=== PATIENT | female | born 1980 | race Caucasian/White ===

== ENCOUNTER 2017-01-21 12:45 | Emergency (ER) | payer SELFPAY ==
[~2017-01-21] VITALS: Ht 177.8 cm; Wt 83.9 kg
--- NOTE | 2017-01-21 12:45 | NUR ---
Patient was BIBA at this time.
[2017-01-21 12:54] VITALS: BP 133/93
--- NOTE | 2017-01-21 14:43 | NUR ---
Pt to be put in a w/c and placed in w/c by EMS.
--- NOTE | 2017-01-21 15:17 | NUR ---
Patient taken to XRAY via wheelchair per tech.
--- NOTE | 2017-01-21 15:22 | NUR ---
Patient back from XRAY via wheelchair per tech--to OF.
--- NOTE | 2017-01-21 15:27 | NUR ---
LAB drawing blood.
[2017-01-21 15:41] LABS: BASOPHILS # (AUTO) 0.4 K/uL (0.00-0.22); BASOPHILS % (AUTO) 4.9 % (0.0-2.0); EOSINOPHILS # (AUTO) 0.2 K/uL (0-0.4); EOSINOPHILS % (AUTO) 2.3 % (0.0-4.0); HEMATOCRIT 40.4 % (36-48); HEMOGLOBIN 13.2 g/dL (12.0-16.0); LYMPHOCYTES # (AUTO) 2.6 K/uL (2.5-16.5); LYMPHOCYTES % (AUTO) 32.4 % (20.5-51.1); MEAN CORPUSCULAR HEMOGLOBIN 27 pg (27-31); MEAN CORPUSCULAR HGB CONC 33 g/dL (33-37); MEAN CORPUSCULAR VOLUME 84 fL (80-94); MONOCYTES # (AUTO) 0.6 K/uL (0.8-1.0); MONOCYTES % (AUTO) 7.1 % (1.7-9.3); NEUTROPHILS # (AUTO) 4.2 K/uL (1.8-7.7); NEUTROPHILS % (AUTO) 53.3 % (42.2-75.2); PLATELET COUNT (AUTO) 386 K/uL (140-450); RED BLOOD CELL COUNT(AUTO) 4.83 MIL/uL (4.20-5.40); RED CELL DISTRIBUTION WIDTH 12.7 % (11.6-13.7)
--- NOTE | 2017-01-21 15:55 | NUR ---
Pt taken to bed 6 via w/c.
[2017-01-21 15:57] LABS: ANION GAP 14.5 (8-16); CALCIUM 8.4 mg/dL (8.5-10.1); CARBON DIOXIDE 25.2 mmol/L (21-32); CREATININE 0.7 mg/dL (0.6-1.3); POTASSIUM 3.7 mmol/L (3.5-5.1)
[2017-01-21 16:04] LABS: TOTAL BILIRUBIN 0.2 mg/dL (0.0-1.0); TOTAL PROTEIN, SERUM 7.9 g/dL (6.4-8.2)
--- NOTE | 2017-01-21 16:11 | NUR ---
PATIENT BIBA C/O CHEST PAIN. PATIENT GIVEN NITRO AND ASPIRIN BY EMS IN FIELD. C/O 2/10 CHEST PAIN. PAIN IS AGGRAVATED BY BREATHING ;DENIES MEDICAL HISTORY BUT PT STAES SHE GOT MULITIPLE OF SURGERIES; DENIES N/V/D; SKIN IS PINK/WARM/DRY; AAOX4 WITH EVEN AND STEADY GAIT; LUNGS CLEAR BL; HR EVEN AND REGULAR; PT DENIES ANY FEVER OR COUGH AT THIS TIME; PATIENT STATES PAIN OF 2/10 AT THIS TIME;PATIENT POSITIONED FOR COMFORT; HOB ELEVATED; BEDRAILS UP X2; BED DOWN. ALL MONITORS IN PLACED.
[2017-01-21 16:29] LABS: APPEARANCE,URINE CLEAR (CLEAR); BILIRUBIN,URINE NEGATIVE (NEGATIVE); BLOOD, URINE NEGATIVE (NEGATIVE); COLOR,URINE YELLOW (YELLOW); LEUKOCYTE ESTERASE ,URINE NEGATIVE (NEGATIVE); NITRITE, URINE NEGATIVE (NEGATIVE); PH,URINE 6.5 (5.0-9.0); PROTEIN,URINE NEGATIVE (NEGATIVE); UGLUCOSE NEGATIVE (NEGATIVE); UROBILINOGEN,URINE 0.2 EU/dL (0.2 - 1)
--- NOTE | 2017-01-21 16:31 | NUR ---
PT RESTING ON BED;NO ACUTE DISTRESS NOTED;WILL CONTINUE TO MONITOR PT.
--- NOTE | 2017-01-21 16:47 | NUR ---
ER AT BEDSIDE
--- NOTE | 2017-01-21 17:47 | NUR ---
Patient discharged with v/s stable. Written and verbal after care instructions given and explained. Patient verbalized understanding. Ambulatory with steady gait. All questions addressed prior to discharge. Advised to follow up with PMD.
[2017-01-21 17:48] VITALS: BP 112/67
== END 2017-01-21 17:47 | disposition home or self-care (01) ==
LOC: MED 12:45
DX: R07.89 Other chest pain (principal); Z89.022 Acquired absence of left finger(s)
CPT/HCPCS: 36415; 71010; 80053; 81003; 81025; 84484; 85025; 85379; 93005; 99285